=== PATIENT | female | born 1945 | race Caucasian/White ===

== ENCOUNTER 2016-10-27 07:47 | Emergency (ER) | payer OTHER ==
[~2016-10-27] VITALS: Ht 157.5 cm; Wt 57.1 kg
[~2016-10-27 07:47] MED LIST: AMPICILLIN500 MG PO; COL100UDC PO; FLA500 PO; FOLIC ACID1 MG PO; LAC PO; OMEPRAZOLE DR20 M1 PO; PREDNISONE2.5 MG PO; SULFASALAZINE500 MG PO; SYNTHROID0.088 MG PO; TRIAMTERENE/HCT1 CA1 PO; TYLENOL EXTRA500 M2 PO; ZESTRIL5 MG PO; ZOC10 PO
[2016-10-27 07:57] VITALS: BP 141/93
== END 2016-10-27 08:50 | disposition home or self-care (01) ==
LOC: ED 07:47
DX: R04.0 Epistaxis (principal); I10 Essential (primary) hypertension; C91.90 Lymphoid leukemia, unspecified not having achieved remission; E03.9 Hypothyroidism, unspecified; E21.3 Hyperparathyroidism, unspecified; Z79.2 Long term (current) use of antibiotics; Z79.1 Long term (current) use of non-steroidal anti-inflammatories (NSAID); Z79.899 Other long term (current) drug therapy; Z85.810 Personal history of malignant neoplasm of tongue; Z86.73 Personal history of transient ischemic attack (TIA), and cerebral infarction without residual deficits; Z88.6 Allergy status to analgesic agent; Z91.013 Allergy to seafood

== ENCOUNTER 2017-10-10 08:28 | Inpatient (IN) | payer OTHER ==
[~2017-10-10] VITALS: Ht 160 cm; Wt 52.4 kg
[~2017-10-10 08:28] MED LIST changes: -FOLIC ACID1 MG PO; +NATURE'S BLEND F1 MG PO; -OMEPRAZOLE DR20 M1 PO; +OMEPRAZOLE MAGN20 M1 PO; -TYLENOL EXTRA500 M2 PO; +TYLENOL EXTRA500 M3
[2017-10-10 08:35] VITALS: Ht 160 cm; Wt 52.4 kg
[2017-10-10 09:44] LABS: CALCIUM 8.6 mg/dL (8.5-10.1); CHLORIDE SERUM 95 mmol/L (98-107); CREATININE SERUM 0.6 mg/dL (0.6-1.0); GLUCOSE SERUM 103 mg/dL (74-106); POTASSIUM SERUM 3.9 mmol/L (3.5-5.1); SODIUM SERUM 131 mmol/L (136-145)
[2017-10-10 09:51] LABS: UA SPECIFIC GRAVITY 1.015 (1.005-1.035); microscopic required? YES; urine erythrocyte TRACE (NEGATIVE)
[2017-10-10 09:56] LABS: ALKALINE PHOSPHATASE 76 U/L (46-116); ALT/SGPT 31 U/L (14-59); AST/SGOT 14 U/L (15-37); BILIRUBIN TOTAL 0.41 mg/dL (0.20-1.00); T4(THYROXINE) 5.4 ug/dL (4.7-13.3); TOTAL PROTEIN, SERUM 8.1 g/dL (6.4-8.2)
[2017-10-10 10:00] LABS: ALBUMIN 2.4 g/dL (3.4-5.0)
[2017-10-10 10:01] LABS: PLATELET COUNT 59 x10^3mcL (130-400); RED CELL DISTRIBUTION WIDTH 15.1 % (11.5-14.5)
[2017-10-10 12:01] LABS: BAND NEUTROPHIL 0 % (0-10); BASOPHIL 0 % (0-2); MONOCYTE 8 % (0-7); SEGMENTED NEUTROPHILS 16 % (37-75)
[2017-10-10 12:02] LABS: rbc morphology (normal/abnorm) ABNORMAL (NORMAL)
[2017-10-10 12:03] LABS: PLATELET MORPHOLOGY PLATELETS DECREASED
[2017-10-10 12:21] VITALS: BP 92/41
[2017-10-10 13:26] LABS: MAGNESIUM 1.8 mg/dL (1.8-2.4); PHOSPHOROUS 3.9 mg/dL (2.5-4.9)
[2017-10-10 14:00] VITALS: BP 105/60
[2017-10-10 17:25] VITALS: BP 106/44
[2017-10-10 21:04] VITALS: BP 104/51
[2017-10-11 05:15] VITALS: BP 103/56
[2017-10-11 09:21] LABS: PLATELET COUNT 51 x10^3mcL (130-400); RED CELL DISTRIBUTION WIDTH 14.7 % (11.5-14.5)
[2017-10-11 09:22] VITALS: BP 105/47
[2017-10-11 09:30] LABS: CALCIUM 8.5 mg/dL (8.5-10.1); CARBON DIOXIDE 26.7 mmol/L (21-32); CHLORIDE SERUM 102 mmol/L (98-107); CREATININE SERUM 0.5 mg/dL (0.6-1.0); GLUCOSE SERUM 156 mg/dL (74-106); POTASSIUM SERUM 3.6 mmol/L (3.5-5.1); SODIUM SERUM 136 mmol/L (136-145)
[2017-10-11 10:11] LABS: BAND NEUTROPHIL 0 % (0-10); BASOPHIL 0 % (0-2); MONOCYTE 16 % (0-7); PLATELET MORPHOLOGY PLATELETS DECREASED; SEGMENTED NEUTROPHILS 20 % (37-75); rbc morphology (normal/abnorm) ABNORMAL (NORMAL)
[2017-10-11 17:02] VITALS: BP 105/47
[2017-10-11 21:30] VITALS: BP 102/39
[2017-10-12 05:16] VITALS: BP 120/56
[2017-10-12 08:54] VITALS: BP 96/47
[2017-10-12 09:23] LABS: PLATELET COUNT 64 x10^3mcL (130-400); RED CELL DISTRIBUTION WIDTH 14.7 % (11.5-14.5)
[2017-10-12 09:38] LABS: CALCIUM 8.1 mg/dL (8.5-10.1); CARBON DIOXIDE 25.2 mmol/L (21-32); CHLORIDE SERUM 96 mmol/L (98-107); CREATININE SERUM 0.5 mg/dL (0.6-1.0); GLUCOSE SERUM 162 mg/dL (74-106); POTASSIUM SERUM 3.9 mmol/L (3.5-5.1); SODIUM SERUM 131 mmol/L (136-145)
[2017-10-12 12:19] LABS: BAND NEUTROPHIL 8 % (0-10); MONOCYTE 10 % (0-7); SEGMENTED NEUTROPHILS 42 % (37-75); burr cell (echinocyte) 1+; ovalocyte/elliptocyte 1+; rbc morphology (normal/abnorm) ABNORMAL (NORMAL)
[2017-10-12 12:20] LABS: PLATELET MORPHOLOGY PLATELETS DECREASED
[2017-10-12 16:08] VITALS: BP 106/42
[2017-10-12 21:25] VITALS: BP 109/54
[2017-10-13 05:49] LABS: CALCIUM 8.1 mg/dL (8.5-10.1); CARBON DIOXIDE 28.9 mmol/L (21-32); CHLORIDE SERUM 92 mmol/L (98-107); CREATININE SERUM 0.5 mg/dL (0.6-1.0); GLUCOSE SERUM 115 mg/dL (74-106); SODIUM SERUM 131 mmol/L (136-145)
[2017-10-13 05:55] LABS: PLATELET COUNT 52 x10^3mcL (130-400); RED CELL DISTRIBUTION WIDTH 15.3 % (11.5-14.5)
[2017-10-13 06:05] VITALS: BP 94/35
[2017-10-13 06:28] LABS: MAGNESIUM 1.9 mg/dL (1.8-2.4); PHOSPHOROUS 3.1 mg/dL (2.5-4.9)
[2017-10-13 06:53] VITALS: BP 142/61
[2017-10-13 09:05] VITALS: BP 134/63
[2017-10-13 13:38] LABS: SEGMENTED NEUTROPHILS 20 % (37-75)
[2017-10-13 13:39] LABS: BAND NEUTROPHIL 4 % (0-10); MONOCYTE 18 % (0-7)
[2017-10-13 13:40] LABS: PLATELET MORPHOLOGY PLATELETS DECREASED; rbc morphology (normal/abnorm) ABNORMAL (NORMAL)
[2017-10-13 16:59] VITALS: BP 121/61
[2017-10-13 20:54] VITALS: BP 121/59
[2017-10-14 05:36] VITALS: BP 121/61
[2017-10-14 07:26] LABS: CALCIUM 8.2 mg/dL (8.5-10.1); CARBON DIOXIDE 26.6 mmol/L (21-32); CHLORIDE SERUM 99 mmol/L (98-107); CREATININE SERUM 0.6 mg/dL (0.6-1.0); GLUCOSE SERUM 117 mg/dL (74-106); POTASSIUM SERUM 4.2 mmol/L (3.5-5.1); SODIUM SERUM 134 mmol/L (136-145)
[2017-10-14 07:52] LABS: PLATELET COUNT 55 x10^3mcL (130-400); RED CELL DISTRIBUTION WIDTH 14.6 % (11.5-14.5)
[2017-10-14 08:54] VITALS: BP 106/45
[2017-10-14 11:26] LABS: BAND NEUTROPHIL 6 % (0-10); SEGMENTED NEUTROPHILS 15 % (37-75)
[2017-10-14 11:27] LABS: MONOCYTE 17 % (0-7); PLATELET MORPHOLOGY LARGE PLATELET SEEN; rbc morphology (normal/abnorm) ABNORMAL (NORMAL)
[2017-10-14 17:18] VITALS: BP 130/68
[2017-10-14 21:21] VITALS: BP 99/51
[2017-10-15 04:57] VITALS: BP 118/52
[2017-10-15 05:14] VITALS: BP 111/62
[2017-10-15 07:48] LABS: CALCIUM 8.2 mg/dL (8.5-10.1); CARBON DIOXIDE 26.4 mmol/L (21-32); CHLORIDE SERUM 97 mmol/L (98-107); CREATININE SERUM 0.5 mg/dL (0.6-1.0); GLUCOSE SERUM 115 mg/dL (74-106); POTASSIUM SERUM 4.3 mmol/L (3.5-5.1); SODIUM SERUM 135 mmol/L (136-145)
[2017-10-15 08:18] LABS: PLATELET COUNT 65 x10^3mcL (130-400); RED CELL DISTRIBUTION WIDTH 14.8 % (11.5-14.5)
[2017-10-15 09:17] VITALS: BP 127/68
[2017-10-15 13:01] LABS: ATYPICAL LYMPH 5 %; BAND NEUTROPHIL 1 % (0-10); METAMYELOCTE 1 % (0-2); MONOCYTE 16 % (0-7); SEGMENTED NEUTROPHILS 23 % (37-75); rbc morphology (normal/abnorm) ABNORMAL (NORMAL)
[2017-10-15 17:12] VITALS: BP 129/63
[2017-10-15 20:26] VITALS: BP 144/69
[2017-10-16 05:14] VITALS: BP 121/56
[2017-10-16 07:39] LABS: PLATELET COUNT 77 x10^3mcL (130-400); RED CELL DISTRIBUTION WIDTH 14.7 % (11.5-14.5)
[2017-10-16 07:57] LABS: ALKALINE PHOSPHATASE 85 U/L (46-116); ALT/SGPT 53 U/L (14-59); AST/SGOT 31 U/L (15-37); BILIRUBIN TOTAL 0.2 mg/dL (0.20-1.00); CALCIUM 8.3 mg/dL (8.5-10.1); CARBON DIOXIDE 29.3 mmol/L (21-32); CHLORIDE SERUM 95 mmol/L (98-107); CREATININE SERUM 0.4 mg/dL (0.6-1.0); GLUCOSE SERUM 108 mg/dL (74-106); POTASSIUM SERUM 4.4 mmol/L (3.5-5.1); SODIUM SERUM 131 mmol/L (136-145); TOTAL PROTEIN, SERUM 7.1 g/dL (6.4-8.2)
[2017-10-16 08:01] LABS: ALBUMIN 1.6 g/dL (3.4-5.0)
[2017-10-16 09:33] VITALS: BP 110/64
[2017-10-16 09:33] LABS: ATYPICAL LYMPH 4 %; BAND NEUTROPHIL 8 % (0-10); BASOPHIL 0 % (0-2); MONOCYTE 24 % (0-7); SEGMENTED NEUTROPHILS 20 % (37-75)
[2017-10-16 09:34] LABS: rbc morphology (normal/abnorm) ABNORMAL (NORMAL)
[2017-10-16 09:35] LABS: PLATELET MORPHOLOGY PLATELETS DECREASED
[2017-10-16 17:21] VITALS: BP 100/55
[2017-10-16 20:48] VITALS: BP 125/65
[2017-10-17 05:28] VITALS: BP 144/76
[2017-10-17 06:50] LABS: CALCIUM 8.8 mg/dL (8.5-10.1); CHLORIDE SERUM 98 mmol/L (98-107); CREATININE SERUM 0.5 mg/dL (0.6-1.0); GLUCOSE SERUM 100 mg/dL (74-106); POTASSIUM SERUM 4.4 mmol/L (3.5-5.1); SODIUM SERUM 134 mmol/L (136-145)
[2017-10-17 07:19] LABS: PLATELET COUNT 103 x10^3mcL (130-400); RED CELL DISTRIBUTION WIDTH 14.7 % (11.5-14.5)
[2017-10-17 09:17] LABS: BAND NEUTROPHIL 8 % (0-10); BASOPHIL 0 % (0-2); MONOCYTE 24 % (0-7); SEGMENTED NEUTROPHILS 32 % (37-75)
[2017-10-17 09:18] LABS: PLATELET MORPHOLOGY PLATELETS DECREASED; rbc morphology (normal/abnorm) ABNORMAL (NORMAL)
[2017-10-17 09:43] VITALS: BP 106/52
[2017-10-17 16:53] VITALS: BP 102/51
[2017-10-17 21:08] VITALS: BP 94/65
[2017-10-18 05:17] VITALS: BP 117/56
[2017-10-18 06:25] LABS: CALCIUM 8.7 mg/dL (8.5-10.1); CARBON DIOXIDE 33.3 mmol/L (21-32); CHLORIDE SERUM 100 mmol/L (98-107); CREATININE SERUM 0.4 mg/dL (0.6-1.0); GLUCOSE SERUM 96 mg/dL (74-106); POTASSIUM SERUM 4.3 mmol/L (3.5-5.1); SODIUM SERUM 134 mmol/L (136-145)
[2017-10-18 06:56] LABS: PLATELET COUNT 121 x10^3mcL (130-400); RED CELL DISTRIBUTION WIDTH 15.1 % (11.5-14.5)
[2017-10-18 08:19] VITALS: BP 134/64
[2017-10-18 10:05] LABS: BAND NEUTROPHIL 8 % (0-10); SEGMENTED NEUTROPHILS 44 % (37-75)
[2017-10-18 10:06] LABS: MONOCYTE 20 % (0-7); PLATELET MORPHOLOGY PLATELETS DECREASED; rbc morphology (normal/abnorm) ABNORMAL (NORMAL)
[2017-10-18 11:56] VITALS: BP 134/64
== END 2017-10-18 13:39 | disposition home health service (06) | DRG 871 ==
LOC: ED 08:28 → DU 10:31 → MU 10:31
PROVIDERS: Emergency Medicine; Family Medicine; Internal Medicine Pulmonary Disease
DX: A41.9 Sepsis, unspecified organism (principal); D61.810 Antineoplastic chemotherapy induced pancytopenia; J18.9 Pneumonia, unspecified organism; N17.0 Acute kidney failure with tubular necrosis; L03.211 Cellulitis of face; E87.1 Hypo-osmolality and hyponatremia; E44.0 Moderate protein-calorie malnutrition; Z68.1 Body mass index [BMI] 19.9 or less, adult; K94.22 Gastrostomy infection; C76.0 Malignant neoplasm of head, face and neck; T45.1X5A Adverse effect of antineoplastic and immunosuppressive drugs, initial encounter; K12.1 Other forms of stomatitis; G47.30 Sleep apnea, unspecified; M06.9 Rheumatoid arthritis, unspecified; M20.12 Hallux valgus (acquired), left foot; M20.11 Hallux valgus (acquired), right foot; I10 Essential (primary) hypertension; E21.3 Hyperparathyroidism, unspecified; E03.9 Hypothyroidism, unspecified; Z79.52 Long term (current) use of systemic steroids; Z98.1 Arthrodesis status; Z93.1 Gastrostomy status; Z86.73 Personal history of transient ischemic attack (TIA), and cerebral infarction without residual deficits; Y83.3 Surgical operation with formation of external stoma as the cause of abnormal reaction of the patient, or of later complication, without mention of misadventure at the time of the procedure; Y92.009 Unspecified place in unspecified non-institutional (private) residence as the place of occurrence of the external cause
CPT/HCPCS: J1442; J2185; J2248; J2543; J2930; J3370; J7030; J7040; J7512; Q0092

== ENCOUNTER 2017-11-09 10:41 | Emergency (ER) | payer OTHER ==
[~2017-11-09] VITALS: Ht 157.5 cm; Wt 48.5 kg
[2017-11-09 10:44] VITALS: Ht 157.5 cm; Wt 48.5 kg
[2017-11-09 23:45] VITALS: BP 113/65
== END 2017-11-09 23:45 | disposition home or self-care (01) ==
LOC: ED 10:41
DX: S82.392A Other fracture of lower end of left tibia, initial encounter for closed fracture (principal); X58.XXXA Exposure to other specified factors, initial encounter; Y93.89 Activity, other specified; Y92.89 Other specified places as the place of occurrence of the external cause; Y99.8 Other external cause status
CPT/HCPCS: J3010; Q0092; Q0162